=== PATIENT | male | born 1970 | race American Indian/Alaskan Native ===

== ENCOUNTER 2017-12-10 08:27 | Emergency (ER) | payer MEDICAID ==
[2017-12-10 09:01] VITALS: RESP 18; TEMP 98.9; O2SAT 98
--- NOTE | 2017-12-10 09:37 | ED PDOC ---
Arrival/HPI - General Chief Complaint: Lower Extremity Problem/Injury Time Seen by Provider: 12/10/17 08:40 Historian: Patient - History of Present Illness Narrative History of Present Illness (Text): 12/10/17 09:36 47yo male with pmhx of hypertension who present with complaint of right 4th toe pain. States he "stubbed" the toe against the floor last night. Notes pain with ambulation. Did not take any analgesic. Denies any other complaint. Past Medical History - Provider Review Nursing Documentation Reviewed: Yes - Infectious Disease Hx of Infectious Diseases: None - Cardiac Hx Cardiac Disorders: Yes Hx Hypertension: Yes - Pulmonary Hx Respiratory Disorders: No - Neurological Hx Neurological Disorder: No - Renal Hx Renal Disorder: No - Endocrine/Metabolic Hx Endocrine Disorders: No - Hematological/Oncological Hx Blood Disorders: No - Integumentary Hx Dermatological Disorder: No - Musculoskeletal/Rheumatological Hx Musculoskeletal Disorders: No - Psychiatric Hx Psychophysiologic Disorder: No Hx Substance Use: No - Anesthesia Hx Anesthesia: No Family/Social History - Physician Review Nursing Documentation Reviewed: Yes Family/Social History: Unknown Family HX Smoking Status: Unknown If Ever Smoked Hx Alcohol Use: No Hx Substance Use: No Allergies/Home Meds Allergies/Adverse Reactions: Allergies No Known Allergies Allergy (Verified 12/10/17 09:01) Review of Systems - Physician Review All systems were reviewed & negative as marked: Yes - Review of Systems Constitutional: Normal Eyes: Normal ENT: Normal Respiratory: Normal Cardiovascular: Normal Gastrointestinal: Normal Genitourinary Male: Normal Musculoskeletal: Arthralgias (Right 4th toe) Skin: Normal Neurological: Normal Endocrine: Normal Hemo/Lymphatic: Normal Psychiatric: Normal Physical Exam Vital Signs Reviewed: Yes Vital Signs Temp Pulse Resp BP Pulse Ox 12/10/17 10:34 98 12/10/17 10:33 78 18 169/95 H 98 12/10/17 08:57 98.9 F 80 18 171/106 H 98 Temperature: Afebrile Blood Pressure: Normal Pulse: Regular Respiratory Rate: Normal Appearance: Positive for: Well-Appearing, Non-Toxic, Comfortable Pain Distress: None Mental Status: Positive for: Alert and Oriented X 3 - Systems Exam Head: Present: Atraumatic, Normocephalic Pupils: Present: PERRL Extroacular Muscles: Present: EOMI Conjunctiva: Present: Normal Mouth: Present: Moist Mucous Membranes Neck: Present: Normal Range of Motion Respiratory/Chest: Present: Clear to Auscultation, Good Air Exchange. No: Respiratory Distress, Accessory Muscle Use Cardiovascular: Present: Regular Rate and Rhythm, Normal S1, S2. No: Murmurs Abdomen: No: Tenderness, Distention, Peritoneal Signs Back: Present: Normal Inspection Upper Extremity: Present: Normal Inspection. No: Cyanosis, Edema Lower Extremity: Present: NORMAL PULSES, Normal ROM, Tenderness (Right 4th toe) , Neurovascularly Intact. No: Edema, Swelling Neurological: Present: GCS=15, CN II-XII Intact, Speech Normal Skin: Present: Warm, Dry, Normal Color. No: Rashes Psychiatric: Present: Alert, Oriented x 3, Normal Insight, Normal Concentration Medical Decision Making ED Course and Treatment: 12/10/17 10:58 Right foot xray - 4tt proximal toe fracture Toes alysha taped. Ortho shoe given. Cane given Pt referred to a configuration manager Ibuprofen 600mg given for pain control. - RAD Interpretation Radiology Orders: 12/10/17 09:05 FOOT RIGHT 4TH DIGIT (TOE) [RAD] Stat - Medication Orders Current Medication Orders: Discontinued Medications Ibuprofen (Motrin Tab) 600 mg PO STAT STA Stop: 12/10/17 09:07 Last Admin: 12/10/17 09:28 Dose: 600 mg MAR Pain/Vitals Document 12/10/17 09:28 SF (Rec: 12/10/17 09:28 [place] [id number] Pain Reassessment Is This A Pain ReAssessment? Yes Sleep Is patient sleeping during reassessment? No Presence of Pain Presence of Pain Yes Disposition/Present on Arrival - Present on Arrival Any Indicators Present on Arrival: No History of DVT/PE: No History of Uncontrolled Diabetes: No Urinary Catheter: No History of Decub. Ulcer: No History Surgical Site Infection Following: None - Disposition Have Diagnosis and Disposition been Completed?: Yes Diagnosis: Toe fracture Disposition: HOME/ ROUTINE Disposition Time: 10:10 Patient Plan: Discharge Patient Problems: Current Active Problems Problem Status Onset Toe fracture Acute Condition: STABLE Discharge Instructions (ExitCare): Toe Fracture (DC) Additional Instructions: Follow up with a Supervisor Knitting Return to ED for any new or worsening symptoms Prescriptions: Ibuprofen [Motrin Tab] 600 mg PO Q6 #15 tab Referrals: Nicola Peña MD [Primary Care Provider] - Follow up with primary Yandel Howard DPM [Staff Provider] - Follow up with primary Forms: [employer] (Albanian), WORK NOTE
[2017-12-10 10:34] VITALS: BP 169/95; PULSE 78
--- NOTE | 2017-12-10 11:44 | RAD ---
PROCEDURE: Radiographs of the right 4th digit. TECHNIQUE:: AP radiograph of the right foot, with oblique and lateral view of the right 4th digit. COMPARISON: None. FINDINGS: BONES: There is an acute transverse impacted mildly posteriorly and medially displaced fracture in the base of the proximal phalanx of the 4th digit. Bone alignment and mineralization are normal. JOINTS: Normal. SOFT TISSUES: Normal. OTHER FINDINGS: None. IMPRESSION: Acute transverse impacted mildly posteriorly and medially displaced fracture in the base of the proximal phalanx of the 4th digit.
== END 2017-12-10 10:34 | disposition home or self-care (01) ==
LOC: ED 08:27
DX: S92.511A Displaced fracture of proximal phalanx of right lesser toe(s), initial encounter for closed fracture (principal); W22.8XXA Striking against or struck by other objects, initial encounter; Y92.9 Unspecified place or not applicable